=== PATIENT | female | born 1955 | race Caucasian/White ===

== ENCOUNTER 2020-09-19 18:58 | Emergency (ER) | payer MEDICAID ==
[~2020-09-19] VITALS: Ht 162.6 cm; Wt 64.8 kg
--- NOTE | 2020-09-19 21:25 | NUR ---
COVID SWAB OBTAINED PER GUIDELINES-WALKED TO LAB
[2020-09-19 21:28] VITALS: BP 149/72
== END 2020-09-19 21:30 | disposition home or self-care (01) ==
LOC: ED 19:30
DX: J00 Acute nasopharyngitis [common cold] (principal); Z20.822 Contact with and (suspected) exposure to COVID-19; F17.200 Nicotine dependence, unspecified, uncomplicated
CPT/HCPCS: 99283; U0003; U0005